=== PATIENT | female | born 1960 | race Asian ===

== ENCOUNTER 2022-06-14 02:03 | Emergency (ER) | payer OTHER, SELFPAY ==
[2022-06-14] MEDS ORDERED: NA CHLORIDE 0.9% 1,000 ML ONE (02:51)
[2022-06-14 03:21] LABS: Hematocrit 37.3 % (36.0-45.0); Lymphocytes % 20.5 % (15.3-44.8); MCV 83.1 fL (80-100); RBC Red Blood Cell Count 4.48 M/uL (3.86-4.86)
[2022-06-14 03:30] LABS: Albumin 3.8 g/dL (3.4-5.0); Bilirubin Total 1.1 mg/dL (0.2-1.0); Potassium 3.8 mEq/L (3.5-5.1); Protein, Total 7.5 g/dL (6.4-8.2)
[2022-06-14 03:41] LABS: Specific Gravity < 1.005 (1.005-1.030); Urine Bacteria <20 /HPF (<20); Urine Bilirubin NEGATIVE (Negative); Urine Blood 3+ (OVER) (Negative); Urine Clarity Turbid (Clear); Urine Color Colorless (Yellow); Urine Glucose NEGATIVE (Negative); Urine Mucus Slight /HPF (None Seen); Urine Protein NEGATIVE (Negative); Urine RBC >50 /HPF (None Seen); Urine Urobilinogen Normal (Normal); Urine WBC Clump Occasional /HPF (None Seen); Urine pH 6.5 (5.0-7.0)
--- NOTE | 2022-06-14 03:54 | EDPHYS ---
Physician Documentation [facility] Name: Adore Feng Age: 61 yrs Sex: Female : 1960 Arrival Date: 06/14/2022 Time: 02:03 Bed 16 Private MD: ED Physician Glynn Crane HPI: 06/14 04:10 This 61 yrs old Female presents to ER via EMS with complaints of Dysuria. rt 04:10 Patient presents to the ED with dysuria starting yesterday. She also reports that she rt has had diarrhea and states that she believes that she is dehydrated. The patient denies fever, chills, acute complaints. Symptoms are mild in severity, no other aggravating or alleviating factors.. Historical: - Allergies: 02:07 No Known Allergies; aa9 - Home Meds: 02:07 amlodipine oral [Active]; Metformin Oral [Active]; aa9 - PMHx: 02:07 Diabetes mellitus; Hypertensive disorder; Bipolar disorder; aa9 - Immunization history:: Client reports receiving the 2nd dose of the Covid vaccine. - Social history:: Smoking status: Patient denies any tobacco usage or history of. - Family history:: not pertinent. ROS: 04:10 Constitutional: Negative for fever, chills, and weight loss, Cardiovascular: Negative rt for chest pain, palpitations, and edema, Respiratory: Negative for shortness of breath, cough, wheezing, and pleuritic chest pain, Abdomen/GI: Negative for abdominal pain, nausea, vomiting, diarrhea, and constipation, MS/Extremity: Negative for injury and deformity, Skin: Negative for injury, rash, and discoloration, Neuro: Negative for headache, weakness, numbness, tingling, and seizure, Psych: Negative for depression, anxiety, suicide ideation, homicidal ideation, and hallucinations. 04:10 ENT: Positive for Dry mucous membranes, negative for lesion. Exam: 04:10 Constitutional: This is a well developed, well nourished patient who is awake, alert, rt and in no acute distress. Head/Face: Normocephalic, atraumatic. Chest/axilla: Normal chest wall appearance and motion. Nontender with no deformity. No lesions are appreciated. Cardiovascular: Regular rate and rhythm with a normal S1 and S2. No gallops, murmurs, or rubs. Normal PMI, no JVD. No pulse deficits. Respiratory: Lungs have equal breath sounds bilaterally, clear to auscultation and percussion. No rales, rhonchi or wheezes noted. No increased work of breathing, no retractions or nasal flaring. Abdomen/GI: Soft, non-tender, with normal bowel sounds. No distension or tympany. No guarding or rebound. No evidence of tenderness throughout. Skin: Warm, dry with normal turgor. Normal color with no rashes, no lesions, and no evidence of cellulitis. MS/ Extremity: Pulses equal, no cyanosis. Neurovascular intact. Full, normal range of motion. Neuro: Awake and alert, GCS 15, oriented to person, place, time, and situation. Cranial nerves II-XII grossly intact. Motor strength 5/5 in all extremities. Sensory grossly intact. Cerebellar exam normal. Normal gait. Psych: Awake, alert, with orientation to person, place and time. Behavior, mood, and affect are within normal limits. 04:10 ENT: Dry mucous membranes, no lesions. Vital Signs: 02:03 BP 145 / 97 RA Supine (auto/reg); Pulse 68; Resp 16; Temp 97.4(O); Pulse Ox 100% ; ds4 02:10 Weight 58.97 kg (R); Height 5 ft. 5 in. (R); aa9 04:14 BP 139 / 87; Pulse 89; Resp 18; Temp 98.5(O); Pulse Ox 99% ; aa9 02:10 Body Mass Index 21.63 (58.97 kg, 165.1 cm) aa9 MDM: 02:36 Patient medically screened. rt 04:10 Differential diagnosis: UTI, dysuria, dehydration, acute kidney injury. Data reviewed: rt vital signs, nurses notes, lab test result(s). Consideration of Admission/Observation Escalation of care including admission/observation considered. I considered the following discharge prescriptions or medication management in the emergency department Medications were administered in the Emergency Department. See MAR. Test considered but Not performed: CT: No back pain, clinical evidence to suggest pyelonephritis, CT scan not indicated. Care significantly affected by the following chronic conditions: Diabetes. Counseling: I had a detailed discussion with the patient and/or guardian regarding: the historical points, exam findings, and any diagnostic results supporting the discharge/admit diagnosis, lab results, the need for outpatient follow up. Response to treatment: the patient's symptoms have markedly improved after treatment. ED course: Patient with noncritical hyponatremia, likely due to vascular contraction, treated with IV fluids. She is desirous of discharge, start patient on antibiotics. No clinical evidence for sepsis.. 06/14 02:39 Order name: CBC with Diff; Complete Time: 03:33 rt 06/14 02:39 Order name: CMP; Complete Time: 03:33 rt 06/14 02:39 Order name: UAM; Complete Time: 03:42 rt 06/14 03:45 Order name: Urine Culture EDMS Administered Medications: 03:03 Drug: NS 0.9% IV 1000 ml Route: IV; Rate: 1 bolus; Site: right antecubital; aa9 04:13 Follow up: Response: No adverse reaction; IV Status: Completed infusion; IV Intake: aa9 1000ml 03:52 Drug: Macrobid PO 100 mg Route: PO; aa9 04:13 Follow up: Response: No adverse reaction aa9 Disposition Summary: 06/14/22 03:53 Discharge Ordered Location: Home rt Problem: new rt Symptoms: have improved rt Condition: Stable rt Diagnosis - UTI/ Urinary tract infection, site not specified rt - Dehydration rt Followup: rt - With: Private Physician - When: 2 - 3 days - Reason: Discharge Instructions: - Discharge Summary Sheet rt - Dehydration, Adult rt - Urinary Tract Infection, Adult rt Forms: - Medication Reconciliation Form rt - Thank You Letter rt - Antibiotic Education rt - Prescription Opioid Use rt Prescriptions: - Macrobid 100 mg Oral Capsule - take 1 capsule by ORAL route every 12 hours for 7 days; 14 capsule; Refills: 0, rt Product Selection Permitted Signatures: Dispatcher [employer] EDMS Racquel Resendiz, RN RN aa9 Glynn Crane MD MD rt
--- NOTE | 2022-06-14 03:54 | ER ---
Nurse's Notes [facility] Name: Adore Feng Age: 61 yrs Sex: Female : 1960 Arrival Date: 06/14/2022 Time: 02:03 Bed 16 Private MD: Diagnosis: UTI/ Urinary tract infection, site not specified;Dehydration Presentation: 06/14 02:05 Chief complaint: EMS states: toned out 61 Y F, pt states on scene,"I feel dehydrated, I aa9 am having diarrhea because of the metformin im on, and I think I have a UTI, I am having discomfort when I pee." Pt vitals stable en route. Coronavirus screen: Vaccine status: Patient reports receiving the 2nd dose of the covid vaccine. Ebola Screen: No symptoms or risks identified at this time. Initial Sepsis Screen: Does the patient meet any 2 criteria? No. Patient's initial sepsis screen is negative. Does the patient have a suspected source of infection? No. Patient's initial sepsis screen is negative. Risk Assessment: Do you want to hurt yourself or someone else? Patient reports no desire to harm self or others. Onset of symptoms was June 14, 2022. 02:05 Method Of Arrival: EMS: [facility] aa9 02:05 Acuity: ANN-MARIE 4 aa9 Triage Assessment: 02:09 General: Appears uncomfortable, slender, Behavior is calm, cooperative. Pain: Denies aa9 pain. Neuro: Level of Consciousness is awake, alert, obeys commands, Oriented to person, place, time, situation. Cardiovascular: Patient's skin is warm and dry. Respiratory: Airway is patent Respiratory effort is even, unlabored. GI: Reports diarrhea, Patient currently denies nausea, vomiting. : Reports burning with urination. Derm: Skin is intact, is healthy with good turgor. Historical: - Allergies: 02:07 No Known Allergies; aa9 - Home Meds: 02:07 amlodipine oral [Active]; Metformin Oral [Active]; aa9 - PMHx: 02:07 Diabetes mellitus; Hypertensive disorder; Bipolar disorder; aa9 - Immunization history:: Client reports receiving the 2nd dose of the Covid vaccine. - Social history:: Smoking status: Patient denies any tobacco usage or history of. - Family history:: not pertinent. Screenin:14 Abuse screen: Denies threats or abuse. Denies injuries from another. Nutritional aa9 screening: No deficits noted. Tuberculosis screening: No symptoms or risk factors identified. 04:15 [facility] ED Fall Risk Assessment (Adult) History of falling in the last 3 months, aa9 including since admission No falls in past 3 months (0 pts). Assessment: 03:04 Reassessment: Patient appears in no apparent distress at this time. Patient and/or aa9 family updated on plan of care and expected duration. Pain level reassessed. Patient is alert, oriented x 3, equal unlabored respirations, skin warm/dry/pink. 04:13 Reassessment: Patient appears in no apparent distress at this time. Patient and/or aa9 family updated on plan of care and expected duration. Pain level reassessed. Patient is alert, oriented x 3, equal unlabored respirations, skin warm/dry/pink. Vital Signs: 02:03 BP 145 / 97 RA Supine (auto/reg); Pulse 68; Resp 16; Temp 97.4(O); Pulse Ox 100% ; ds4 02:10 Weight 58.97 kg (R); Height 5 ft. 5 in. (R); aa9 04:14 BP 139 / 87; Pulse 89; Resp 18; Temp 98.5(O); Pulse Ox 99% ; aa9 02:10 Body Mass Index 21.63 (58.97 kg, 165.1 cm) aa9 ED Course: 02:03 Patient arrived in ED. ds4 02:05 Racquel Resendiz, RN is Primary Nurse. aa9 02:07 Triage completed. aa9 02:09 Arm band placed on. aa9 02:10 Patient has correct armband on for positive identification. Bed in low position. Call aa9 light in reach. Pulse ox on. NIBP on. 02:29 Glynn Crane MD is Attending Physician. rt 02:59 Inserted saline lock: 22 gauge in right antecubital area, using aseptic technique. ds4 Blood collected. 03:47 Urine Culture Sent. aa9 04:14 No provider procedures requiring assistance completed. IV discontinued, intact, aa9 bleeding controlled, No redness/swelling at site. Pressure dressing applied. Administered Medications: 03:03 Drug: NS 0.9% IV 1000 ml Route: IV; Rate: 1 bolus; Site: right antecubital; aa9 04:13 Follow up: Response: No adverse reaction; IV Status: Completed infusion; IV Intake: aa9 1000ml 03:52 Drug: Macrobid PO 100 mg Route: PO; aa9 04:13 Follow up: Response: No adverse reaction aa9 Intake: 04:13 IV: 1000ml; Total: 1000ml. aa9 Outcome: 03:53 Discharge ordered by MD. rt 04:14 Patient left the ED. aa9 04:14 Discharged to home ambulatory. aa9 04:14 Condition: stable 04:14 Discharge instructions given to patient, Instructed on discharge instructions, follow up and referral plans. medication usage, Demonstrated understanding of instructions, follow-up care, medications, Prescriptions given X 1. Signatures: Ezequiel Harmon ds4 Racquel Resendiz, RITA RN aa9 Glynn Crane MD MD rt
[2022-06-14] MEDS ORDERED: NITROFURAN MACRO 100 MG CAP PO ONE (03:56)
[2022-06-14 04:46] VITALS: BP 139/87; TEMP 98.5; O2SAT 99
== END 2022-06-14 04:14 | disposition home or self-care (01) ==
LOC: ER 02:03
DX: N39.0 Urinary tract infection, site not specified (principal); E86.0 Dehydration; E11.9 Type 2 diabetes mellitus without complications; I10 Essential (primary) hypertension
CPT/HCPCS: 87088; 85025; 81001; 87086; 36415; 80053; J7030; 96360; 99284

== ENCOUNTER 2022-06-26 04:32 | Emergency (ER) | payer OTHER ==
--- OUTSIDE RECORDS SUMMARY | 2022-06-26 04:35 | XMS REPORT | Continuity of Care Document ---
:1960 Author Organization [facility] t Address [address] [place] [id number] Care Team Providers Name Role Phone Unavailable Unavailable Unavailable Payers Payer Name Policy Type Policy Number Effective Date Expiration Date [facility] [place]: [id number] [place] Problems This patient has no known problems. Allergies, Adverse Reactions, Alerts This patient has no known allergies or adverse reactions. Medications This patient has no known medications. Procedures This patient has no known procedures. Encounters Start End Encounter Admission Attending Care Care Encounter Source Date/Time Date/Time Type Type Clinicians Facility Department ID 2022-05-24 2022-05-24 Outpatient VFP VFP [id number] -20 [facility] 00:00:00 00:00:00 [id number] Family Practic e 2022-05-23 2022-05-23 Outpatient VFP VFP [id number] -20 [facility] 00:00:00 00:00:00 [id number] Family Practic e Results This patient has no known results.
[2022-06-26] MEDS ORDERED: METHYLPREDNISOLONE 125 MG INJ ONE (05:01)
[2022-06-26] MEDS ORDERED: DIPHENHYDRAMINE 50 MG/ML VIAL ONE (05:01)
[2022-06-26] MEDS ORDERED: FAMOTIDINE 20 MG/2 ML VIAL IV ONE (05:01)
--- NOTE | 2022-06-26 06:58 | ER ---
Nurse's Notes [facility] Name: Adore Feng Age: 61 yrs Sex: Female : 1960 Arrival Date: 06/26/2022 Time: 04:32 Bed 8 Private MD: Diagnosis: Allergic urticaria, acute systemic allergic reaction Presentation: 06/26 04:48 Chief complaint: EMS states: We were called for a possible allergic reaction to the vc1 detergent used on her clothes, pt complaining that she is itching all over. Coronavirus screen: Vaccine status: Patient reports receiving the 2nd dose of the covid vaccine. plus booster, Yann x2 moderna x1. Ebola Screen: Patient negative for fever greater than or equal to 101.5 degrees Fahrenheit, and additional compatible Ebola Virus Disease symptoms Patient denies exposure to infectious person. Patient denies travel to an Ebola-affected area in the 21 days before illness onset. No symptoms or risks identified at this time. Onset: The symptoms/episode began/occurred gradually, yesterday. Anaphylaxis evaluation, no signs or symptoms of anaphylaxis were noted. Initial Sepsis Screen: Does the patient meet any 2 criteria? No. Patient's initial sepsis screen is negative. Does the patient have a suspected source of infection? No. Patient's initial sepsis screen is negative. Risk Assessment: Do you want to hurt yourself or someone else? Patient reports no desire to harm self or others. Onset of symptoms was June 25, 2022. 04:48 Method Of Arrival: EMS: [facility] vc1 04:48 Acuity: ANN-MARIE 4 vc1 Triage Assessment: 04:51 General: Appears in no apparent distress. uncomfortable, Behavior is calm, cooperative, vc1 appropriate for age. Pain: Denies pain. EENT: No deficits noted. No signs and/or symptoms were reported regarding the EENT system. Neuro: Level of Consciousness is awake, alert, obeys commands, Oriented to person, place, time, situation, Appropriate for age. Cardiovascular: No deficits noted. Respiratory: Airway is patent Respiratory effort is even, unlabored, Respiratory pattern is regular, symmetrical. GI: No deficits noted. No signs and/or symptoms were reported involving the gastrointestinal system. : No deficits noted. No signs and/or symptoms were reported regarding the genitourinary system. Derm: Rash noted that is itchy. Musculoskeletal: No deficits noted. No signs and/or symptoms reported regarding the musculoskeletal system. Historical: - PMHx: 04:41 Bipolar disorder; diabetes mellitus; Hypertensive disorder; sp4 - Immunization history:: Client reports receiving the 2nd dose of the Covid vaccine. - Social history:: Smoking status: Patient/guardian denies using alcohol, street drugs, IV drugs, caffeine, over the counter diet medications, tobacco products. - Family history:: not pertinent. Screenin:51 [facility] ED Fall Risk Assessment (Adult) History of falling in the last 3 months, vc1 including since admission No falls in past 3 months (0 pts) Confusion or Disorientation No (0 pts) Intoxicated or Sedated No (0 pts) Impaired Gait No (0 pts) Mobility Assist Device Used No (0 pt) Altered Elimination No (0 pt) Score/Fall Risk Level 0 - 2 = Low Risk Oriented to surroundings, Maintained a safe environment, Educated pt \T\ family on fall prevention, incl call for assistance when getting out of bed. Abuse screen: Denies threats or abuse. Nutritional screening: No deficits noted. Tuberculosis screening: No symptoms or risk factors identified. Assessment: 04:51 Pain: Denies pain. Respiratory: Airway is patent Respiratory effort is even, unlabored, vc1 Breath sounds are clear. 06:00 Reassessment: Patient and/or family updated on plan of care and expected duration. Pain vc1 level reassessed. Patient is alert, oriented x 3, equal unlabored respirations, skin warm/dry/pink. Patient states symptoms have improved. 06:26 Reassessment: No changes from previously documented assessment. Patient and/or family vc1 updated on plan of care and expected duration. Pain level reassessed. Patient is alert, oriented x 3, equal unlabored respirations, skin warm/dry/pink. Vital Signs: 04:48 BP 154 / 94; Pulse 73; Resp 18; Temp 98; Pulse Ox 100% ; Weight 56.7 kg; Height 5 ft. 5 vc1 in. ; Pain 0/10; 05:00 BP 117 / 98; Pulse 77; Resp 15; Pulse Ox 100% ; vc1 06:00 BP 153 / 82; Pulse 65; Resp 15; Pulse Ox 100% ; vc1 04:48 Body Mass Index 20.80 (56.70 kg, 165.1 cm) vc1 04:48 Pain Scale: Adult vc1 ED Course: 04:34 Patient arrived in ED. jj6 04:39 Davon Redman MD is Attending Physician. sp4 04:50 Triage completed. vc1 04:50 Donna Tanner, RN is Primary Nurse. lg3 04:52 Patient has correct armband on for positive identification. Placed in gown. Bed in low vc1 position. Call light in reach. Pulse ox on. NIBP on. 05:07 Inserted saline lock: 22 gauge in right antecubital area, using aseptic technique. lg3 06:28 Arm band placed on right wrist. vc1 07:20 No provider procedures requiring assistance completed. IV discontinued, intact, ap3 bleeding controlled, No redness/swelling at site. Pressure dressing applied. Administered Medications: 05:07 Drug: MethylPrednisoLONE IVP 125 mg Route: IVP; Site: right antecubital; lg3 07:21 Follow up: Response: No adverse reaction ap3 05:07 Drug: Famotidine IVP 20 mg Route: IVP; Site: right antecubital; lg3 07:21 Follow up: Response: No adverse reaction ap3 05:07 Drug: diphenhydrAMINE IVP 50 mg Route: IVP; Site: right antecubital; lg3 07:21 Follow up: Response: No adverse reaction ap3 Medication: 04:53 VIS not applicable for this client. vc1 Outcome: 06:58 Discharge ordered by . sp4 07:20 Discharged to home ambulatory. ap3 07:20 Condition: good 07:20 Discharge instructions given to patient, Instructed on discharge instructions, follow up and referral plans. medication usage, Demonstrated understanding of instructions, follow-up care, medications, Prescriptions given X 2. 07:21 Patient left the ED. ap3 Signatures: Yaneth Osei RN RN ap3 Donna Tanner, RITA SALINAS lg3 Lainey Vega jj6 Joleen Cadena RN RN vc1 Davon Redman MD MD sp4
--- NOTE | 2022-06-26 06:58 | EDPHYS ---
Physician Documentation [facility] Name: Adore Feng Age: 61 yrs Sex: Female : 1960 Arrival Date: 06/26/2022 Time: 04:32 Bed 8 Private MD: ED Physician Davon Redman HPI: 06/26 04:40 This 61 yrs old Female presents to ER via Unassigned with complaints of Allergic sp4 Reaction. 04:40 61-year-old female with history of bipolar disorder, diabetes, hypertension presents sp4 with EMS for acute generalized rash associated with itching. Rash started sometime yesterday after patient states her clothes was washed and different detergent. Patient denied any respiratory trouble, denied throat swelling, denied oral or perioral swelling. Historical: - PMHx: 04:41 Bipolar disorder; diabetes mellitus; Hypertensive disorder; sp4 - Immunization history:: Client reports receiving the 2nd dose of the Covid vaccine. - Social history:: Smoking status: Patient/guardian denies using alcohol, street drugs, IV drugs, caffeine, over the counter diet medications, tobacco products. - Family history:: not pertinent. ROS: 04:41 Constitutional: Negative for fever, chills, and weight loss, Eyes: Negative for injury, sp4 pain, redness, and discharge, ENT: Negative for injury, pain, and discharge, Neck: Negative for injury, pain, and swelling, Cardiovascular: Negative for chest pain, palpitations, and edema, Respiratory: Negative for shortness of breath, cough, wheezing, and pleuritic chest pain, Abdomen/GI: Negative for abdominal pain, nausea, vomiting, diarrhea, and constipation, Back: Negative for injury and pain, : Negative for injury, bleeding, discharge, and swelling, MS/Extremity: Negative for injury and deformity, Skin: Negative for injury, positive for pruritus, diffuse rash, diffuse hives Neuro: Negative for headache, weakness, numbness, tingling, and seizure, Psych: Negative for depression, anxiety, Allergy/Immunology: Negative for hives, rash, and allergies Endocrine: Negative for neck swelling, polydipsia, polyuria, polyphagia, and weight changes Hematologic/Lymphatic: Negative for swollen nodes, abnormal bleeding, and unusual bruising Exam: 04:41 Constitutional: This is a well developed, well nourished patient who is awake, alert, sp4 and in no acute distress. Positive for mild to moderate diffuse hives Head/Face: Normocephalic, atraumatic. Eyes: Pupils equal round and reactive to light, extra-ocular motions intact. Lids and lashes normal. Conjunctiva and sclera are not injected. Cornea within normal limits. Periorbital areas with no swelling, redness, or edema. ENT: Nares patent. No nasal discharge, no septal abnormalities noted. Tympanic membranes are normal and external auditory canals are clear. Oropharynx with no redness, swelling, or masses, exudates, or evidence of obstruction, uvula midline. Mucous membranes moist. Neck: Trachea midline, no thyromegaly or masses palpated, and no cervical lymphadenopathy. Supple, full range of motion without nuchal rigidity, or vertebral point tenderness. No Meningismus. Chest/axilla: Normal chest wall appearance and motion. Nontender with no deformity. No lesions are appreciated. Cardiovascular: Regular rate and rhythm with a normal S1 and S2. No gallops, murmurs, or rubs. Normal PMI, no JVD. No pulse deficits. Respiratory: Lungs have equal breath sounds bilaterally, clear to auscultation and percussion. No rales, rhonchi or wheezes noted. No increased work of breathing, no retractions or nasal flaring. Abdomen/GI: Soft, non-tender, with normal bowel sounds. No distension or tympany. No guarding or rebound. No evidence of tenderness throughout. Back: No spinal tenderness. No costovertebral tenderness. Skin: Warm, dry with normal turgor. Normal color with no lesions, and no evidence of cellulitis. Mild to moderate hives diffusely MS/ Extremity: Pulses equal, no cyanosis. Neurovascular intact. Full, normal range of motion. Neuro: Awake and alert, GCS 15, oriented to person, place, time, and situation. Cranial nerves II-XII grossly intact. Motor strength 5/5 in all extremities. Sensory grossly intact. Psych: Awake, alert, with orientation to person, place and time. Behavior, mood, and affect are within normal limits Vital Signs: 04:48 BP 154 / 94; Pulse 73; Resp 18; Temp 98; Pulse Ox 100% ; Weight 56.7 kg; Height 5 ft. 5 vc1 in. ; Pain 0/10; 05:00 BP 117 / 98; Pulse 77; Resp 15; Pulse Ox 100% ; vc1 06:00 BP 153 / 82; Pulse 65; Resp 15; Pulse Ox 100% ; vc1 04:48 Body Mass Index 20.80 (56.70 kg, 165.1 cm) vc1 04:48 Pain Scale: Adult vc1 MDM: 04:41 Differential diagnosis: anaphylaxis, urticaria. Data reviewed: vital signs, nurses sp4 notes. ED course: Patient will be managed for acute allergic reaction, secondary to systemic exposure. 04:45 Patient medically screened. sp4 06:51 ED course: will discharge with PO Prednisone low dose and PO Benadryl . sp4 06/26 06:44 Order name: Glucose, Ancillary Testing; Complete Time: 06:59 EDMS 06/26 04:40 Order name: Saline Lock; Complete Time: 05:07 sp4 06/26 04:40 Order name: Accucheck; Complete Time: 06:28 sp4 Administered Medications: 05:07 Drug: MethylPrednisoLONE IVP 125 mg Route: IVP; Site: right antecubital; lg3 07:21 Follow up: Response: No adverse reaction ap3 05:07 Drug: Famotidine IVP 20 mg Route: IVP; Site: right antecubital; lg3 07:21 Follow up: Response: No adverse reaction ap3 05:07 Drug: diphenhydrAMINE IVP 50 mg Route: IVP; Site: right antecubital; lg3 07:21 Follow up: Response: No adverse reaction ap3 Disposition Summary: 06/26/22 06:58 Discharge Ordered Location: Home sp4 Problem: new sp4 Symptoms: have improved sp4 Condition: Stable sp4 Diagnosis - Allergic urticaria, acute systemic allergic reaction sp4 Followup: sp4 - With: Private Physician - When: 5 - 6 days - Reason: Recheck today's complaints Discharge Instructions: - Discharge Summary Sheet sp4 - Hives, [id number] sp4 Forms: - Thank You Letter sp4 Prescriptions: - Benadryl 25 mg Oral Capsule - take 1 capsule by ORAL route every 6 hours As needed; 30 tablet; Refills: 0, sp4 Product Selection Permitted - Prednisone 20 mg Oral Tablet - take 1 tablet by ORAL route once daily for 5 days; 5 tablet; Refills: 0, sp4 Product Selection Permitted Signatures: Donna Tanner, RN RN lg3 Joleen Cadena RN RN vc1 Davon Redman MD MD sp4 Yaneth Osei RN ap3
[2022-06-26 07:30] VITALS: TEMP 98; O2SAT 100
[2022-06-26 07:43] VITALS: BP 153/82
== END 2022-06-26 07:21 | disposition home or self-care (01) ==
LOC: ER 04:32
DX: L50.0 Allergic urticaria (principal); T78.40XA Allergy, unspecified, initial encounter; Y93.E2 Activity, laundry
CPT/HCPCS: 82947; 96375; 96374; 99284; J1200; J2930

== ENCOUNTER 2022-08-26 19:05 | Emergency (ER) | payer OTHER ==
--- OUTSIDE RECORDS SUMMARY | 2022-08-26 19:12 | XMS REPORT | Continuity of Care Document ---
:1960 Author Organization [facility] t Address [address] [place] [address] Care Team Providers Name Role Phone Unavailable Unavailable Unavailable Payers Payer Name Policy Type Policy Number Effective Date Expiration Date S charley MEDICARE [place]: [id number] [employer] Problems This patient has no known problems. Allergies, Adverse Reactions, Alerts This patient has no known allergies or adverse reactions. Medications This patient has no known medications. Procedures This patient has no known procedures. Encounters Start End Encounter Admission Attending Care Care Encounter Source Date/Time Date/Time Type Type Clinicians Facility Department ID 2022-05-24 2022-05-24 Outpatient VFP VFP [id number] [facility] 00:00:00 00:00:00 [id number] Family Practic e 2022-05-23 2022-05-23 Outpatient VFP VFP [id number] [facility] 00:00:00 00:00:00 [id number] Family Practic e Results This patient has no known results.
--- NOTE | 2022-08-26 19:58 | EDPHYS ---
Physician Documentation [facility] Name: Adroe Feng Age: 62 yrs Sex: Female : 1960 Arrival Date: 08/26/2022 Time: 19:05 Bed 11 Private MD: ED Physician Glynn Crane HPI: 08/26 22:07 This 62 yrs old Female presents to ER via Ambulatory with complaints of Eye rt Problem. 22:07 Patient presents to the ED with 2 months of reported eye infections [place]. She reports pain to the eyes. Denies contact use. Is requesting antibiotics for possible conjunctivitis. Denies vision changes. Patient also request refill of blood pressure medications due to being out. Patient states that she does have an appointment with an eye doctor and primary care within the next few weeks. Denies other acute complaints at this time, symptoms are moderate severity, no other aggravating alleviating factors. Historical: - Allergies: 19:14 No Known Allergies; kd3 - PMHx: 19:14 Bipolar disorder; diabetes mellitus; Hypertensive disorder; kd3 - Immunization history:: Adult Immunizations up to date. - Social history:: Smoking status: Patient denies any tobacco usage or history of. - Family history:: not pertinent. ROS: 22:07 Constitutional: Negative for fever, chills, and weight loss, Cardiovascular: Negative rt for chest pain, palpitations, and edema, Respiratory: Negative for shortness of breath, cough, wheezing, and pleuritic chest pain, Abdomen/GI: Negative for abdominal pain, nausea, vomiting, diarrhea, and constipation, MS/Extremity: Negative for injury and deformity, Skin: Negative for injury, rash, and discoloration, Neuro: Negative for headache, weakness, numbness, tingling, and seizure, Psych: Negative for depression, anxiety, suicide ideation, homicidal ideation, and hallucinations. 22:07 Eyes: Positive for discharge, redness. Exam: 22:07 Constitutional: This is a well developed, well nourished patient who is awake, alert, rt and in no acute distress. Head/Face: Normocephalic, atraumatic. Skin: Warm, dry with normal turgor. Normal color with no rashes, no lesions, and no evidence of cellulitis. MS/ Extremity: Pulses equal, no cyanosis. Neurovascular intact. Full, normal range of motion. Neuro: Awake and alert, GCS 15, oriented to person, place, time, and situation. Cranial nerves II-XII grossly intact. Motor strength 5/5 in all extremities. Sensory grossly intact. Cerebellar exam normal. Normal gait. Psych: Awake, alert, with orientation to person, place and time. Behavior, mood, and affect are within normal limits. 22:07 Eyes: Bilateral conjunctival injection with discharge noted, extraocular muscles are intact, pupils equally round reactive to light. Vital Signs: 19:12 BP 159 / 127; Pulse 98; Resp 19; Temp 98.9(O); Pulse Ox 100% on R/A; kd3 19:16 BP 161 / 81; kd3 MDM: 19:49 Patient medically screened. rt 22:11 Differential diagnosis: Corneal ulcer of Conjunctivitis. Data reviewed: vital signs, rt nurses notes. Counseling: I had a detailed discussion with the patient and/or guardian regarding: the historical points, exam findings, and any diagnostic results supporting the discharge/admit diagnosis, the need for outpatient follow up. Administered Medications: No medications were administered Disposition Summary: 08/26/22 19:57 Discharge Ordered Location: Home rt Problem: new rt Symptoms: are unchanged rt Condition: Stable rt Diagnosis - Unspecified conjunctivitis rt - Essential (primary) hypertension rt Followup: rt - With: Private Physician - When: 5 - 6 days - Reason: Discharge Instructions: - Discharge Summary Sheet rt - Bacterial Conjunctivitis, Adult rt - Hypertension, Adult rt Forms: - Medication Reconciliation Form rt - Thank You Letter rt - Antibiotic Education rt - Prescription Opioid Use rt - Patient Portal Instructions rt Prescriptions: - Norvasc 5 mg Oral Tablet - take 1 tablet by ORAL route once daily; 30 tablet; Refills: 0, Product rt Selection Permitted - Erythromycin 5 mg/gram (0.5 %) Ophthalmic Ointment - apply 1 ribbon by OPHTHALMIC route every 8 hours; 1 Each; Refills: 0, Product rt Selection Permitted Signatures: Carlita Ramirez RN RN kd3 Glynn Crane MD MD rt
--- NOTE | 2022-08-26 19:58 | ER ---
Nurse's Notes [facility] Name: Adore Feng Age: 62 yrs Sex: Female : 1960 Arrival Date: 08/26/2022 Time: 19:05 Bed 11 Private MD: Diagnosis: Unspecified conjunctivitis;Essential (primary) hypertension Presentation: 08/26 19:12 Coronavirus screen:. Coronavirus screen: Vaccine status: Patient reports receiving the kd3 2nd dose of the covid vaccine. Ebola Screen: No symptoms or risks identified at this time. Initial Sepsis Screen: Does the patient meet any 2 criteria? No. Patient's initial sepsis screen is negative. Does the patient have a suspected source of infection? No. Patient's initial sepsis screen is negative. Risk Assessment: Do you want to hurt yourself or someone else? Patient reports no desire to harm self or others. 19:12 Method Of Arrival: Ambulatory kd3 19:13 Chief complaint: Patient states: My right eye is painful and i have infection in both kd3 of my eyes. It started when i moved to [place] 3 months ago. I sort of have some blurred vision with it. Onset of symptoms was August 26, 2022. 19:13 Acuity: ANN-MARIE 4 kd3 Triage Assessment: 19:14 General: Appears uncomfortable, Behavior is cooperative, anxious. Pain: Complains of kd3 pain in right eye and left eye. Neuro: Level of Consciousness is awake, alert, obeys commands, Oriented to person, place, time, situation. Historical: - Allergies: 19:14 No Known Allergies; kd3 - PMHx: 19:14 Bipolar disorder; diabetes mellitus; Hypertensive disorder; kd3 - Immunization history:: Adult Immunizations up to date. - Social history:: Smoking status: Patient denies any tobacco usage or history of. - Family history:: not pertinent. Screenin:05 [facility] ED Fall Risk Assessment (Adult) History of falling in the last 3 months, kd3 including since admission No falls in past 3 months (0 pts) Confusion or Disorientation No (0 pts) Intoxicated or Sedated No (0 pts) Impaired Gait No (0 pts) Mobility Assist Device Used No (0 pt) Altered Elimination No (0 pt) Score/Fall Risk Level 0 - 2 = Low Risk Maintained a safe environment. Abuse screen: Denies threats or abuse. Denies injuries from another. Nutritional screening: No deficits noted. Tuberculosis screening: No symptoms or risk factors identified. Vital Signs: 19:12 BP 159 / 127; Pulse 98; Resp 19; Temp 98.9(O); Pulse Ox 100% on R/A; kd3 19:16 BP 161 / 81; kd3 ED Course: 19:09 Patient arrived in ED. ja2 19:11 Glynn Crane MD is Attending Physician. rt 19:14 Triage completed. kd3 19:14 Arm band placed on right wrist. kd3 20:05 Carlita Ramirez RN is Primary Nurse. kd3 20:05 Patient has correct armband on for positive identification. Provided Education on: . kd3 20:06 No provider procedures requiring assistance completed. Patient did not have IV access kd3 during this emergency room visit. Administered Medications: No medications were administered Medication: 20:06 VIS not applicable for this client. kd3 Outcome: 19:57 Discharge ordered by . rt 20:06 Discharged to home ambulatory. kd3 20:06 Condition: stable 20:06 Discharge instructions given to patient, Instructed on discharge instructions, follow up and referral plans. medication usage, Demonstrated understanding of instructions, follow-up care, medications, Prescriptions given X 1. 20:06 Patient left the ED. kd3 Signatures: Jordyn Jaimes2 Carlita Ramirez, RN RN kd3 Glynn Crane MD MD rt
[2022-08-26 20:11] VITALS: TEMP 98.9; O2SAT 100
[2022-08-26 20:12] VITALS: BP 161/81
== END 2022-08-26 20:06 | disposition home or self-care (01) ==
LOC: ER 19:05
DX: H10.9 Unspecified conjunctivitis (principal); I10 Essential (primary) hypertension
CPT/HCPCS: 99283